=== PATIENT | male | born 1970 | race American Indian/Alaskan Native ===

== ENCOUNTER 2019-01-25 08:35 | Emergency (ER) | payer OTHER ==
[2019-01-25 11:44] LABS: Basophils # (Auto) 0.1 K/mm3 (0.0-0.1); Basophils % (Auto) 1.6 % (0.0-1.8); Eosinophils # (Auto) 0.2 K/mm3 (0.0-0.4); Eosinophils % (Auto) 2.6 % (0.0-4.3); Hematocrit 27.7 % (35.5-45.6); Hemoglobin 8.6 gm/dl (11.8-15.2); Lymphocytes # (Auto) 1.6 K/mm3 (1.2-5.4); Lymphocytes % (Auto) 22.7 % (13.4-35.0); Mean Corpuscular HGB Conc 31 % (32-34); Mean Corpuscular Volume 91 fl (84-94); Monocytes # (Auto) 0.6 K/mm3 (0.0-0.8); Monocytes % (Auto) 8.9 % (0.0-7.3); Red Blood Count 3.05 M/mm3 (3.65-5.03); Red Cell Distribution Width 14.3 % (13.2-15.2)
--- NOTE | 2019-01-25 11:45 | Emergency Department Report ---
ED General Adult HPI - General Chief complaint: Tube Replacement Stated complaint: DIALYSIS PORT IS OUT Time Seen by Provider: 01/25/19 11:28 Source: patient Mode of arrival: Wheelchair Limitations: No Limitations - History of Present Illness Initial comments: Mr. Nuñez is a very pleasant 46-year-old male with history of end-stage renal disease on hemodialysis Monday and Monday. He also has a history of hypertension. He is new to dialysis therapy. He began dialysis 2 months ago. His corrections caseworker is Dr. Nancy Su. He obtains dialysis at the clinic of Dr. Su in [place]. Today he presents with dislodgment of right sided c hest Vas-Cath. No trauma to the area. He stated that the dialysis access catheter just fell out. He currently denies chest pain, shortness of breath or bleeding. Mr. Nuñez has been referred to a vascular surgeon. He has an appointment scheduled next week. He is unable to recall the name of this clinic. He lives with his girlfriend Gina who is at the bedside. 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 The vascular device was placed at a [facility]. -: Sudden, This morning Location: chest (right-sided chest Vas-Cath dislodged) Severity scale (0 -10): 0 Improves with: none Worsens with: none Associated Symptoms: denies other symptoms Treatments Prior to Arrival: none - Related Data Allergies Allergy/AdvReac Type Severity Reaction Status Date / Time No Known Allergies Allergy Unverified 01/25/19 09:04 ED Review of Systems ROS: Stated complaint: DIALYSIS PORT IS OUT Other details as noted in HPI Comment: All other systems reviewed and negative Constitutional: denies: fever, malaise Respiratory: denies: shortness of breath Cardiovascular: denies: chest pain Gastrointestinal: denies: nausea, vomiting Hematological/Lymphatic: denies: easy bleeding, easy bruising ED Past Medical Hx - Past Medical History Previous Medical History?: Yes Hx Hypertension: Yes Hx Renal Disease: Yes (HD TTS) Additional medical history: 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 - Surgical History Past Surgical History?: Yes Additional Surgical History: intracranial surgery for ruptured aneurysm - Family History Family history: hypertension - Social History Smoking Status: Never Smoker Substance Use Type: Alcohol ED Physical Exam - General Limitations: No Limitations General appearance: alert, in no apparent distress, other (pleasant, jovial in no acute distress) - Head Head exam: Present: atraumatic, normocephalic, other (left posterior scalp old vertical linear surgical wound) - Eye Eye exam: Present: normal appearance - ENT ENT exam: Present: mucous membranes moist - Neck Neck exam: Present: normal inspection, full ROM - Respiratory Respiratory exam: Present: normal lung sounds bilaterally. Absent: respiratory distress, wheezes, rales, rhonchi - Cardiovascular Cardiovascular Exam: Present: regular rate, normal rhythm, normal heart sounds, other (right chest: bloody bandage without active bleeding). Absent: systolic murmur, diastolic murmur, rubs, gallop - GI/Abdominal GI/Abdominal exam: Present: soft, normal bowel sounds. Absent: distended, tenderness, guarding, rebound - Rectal Rectal exam: Present: deferred - Extremities Exam Extremities exam: Present: normal inspection - Back Exam Back exam: Present: normal inspection - Neurological Exam Neurological exam: Present: alert, oriented X3 - Psychiatric Psychiatric exam: Present: normal affect, normal mood - Skin Skin exam: Present: warm, dry, intact, normal color. Absent: rash ED Course Vital Signs 01/25/19 01/25/19 01/25/19 09:00 11:44 12:33 Temperature 98.9 F 98.8 F 98.4 F Pulse Rate 87 72 94 H Respiratory 16 20 16 Rate Blood Pressure 125/80 Blood Pressure 119/82 150/106 [Left] O2 Sat by Pulse 100 97 90 Oximetry ED Medical Decision Making - Lab Data Result diagrams: 01/25/19 11:32 01/25/19 11:32 - Radiology Data Radiology results: report reviewed No acute process on chest radiograph with mild cardiomegaly, no acute process, no pneumothorax no retained fragments - Medical Decision Making Mr. Nuñez has had a right-sided chest Vas-Cath in place for the past 2 months. The vascular device was inserted at [facility]. He currently does not have any complications such as pneumothorax or at the bleeding. I have reviewed the labs: CBC revealed anemia which is known to patient, potassium within normal limits. A portable chest one view borderline cardiomegaly lungs clear no acute process no obvious retained fragments or pneumothorax I have discussed case with his personal corrections caseworker Dr. Nancy Su [phone]. Dr. Su recommended having hemodialysis access placed here at our institution. I have consulted Dr. Zelaya interventionalist. Dr. Zelaya came to the bedside and evaluated Mr. Nuñez [id number]. Mr. Nuñez was taken to [facility] house lab[facility] for permacath placement. Upon return to the emergency department, he did not have any concerns or complaints. Vital signs are stable. Discharged home in stable condition. Critical care attestation.: If time is entered above; I have spent that time in minutes in the direct care of this critically ill patient, excluding procedure time. ED Disposition Clinical Impression: Dialysis catheter clot or failure, S/P dialysis catheter insertion Disposition: DC-01 TO HOME OR SELFCARE Is pt being admited?: No Does the pt Need Aspirin: No Condition: Stable Additional Instructions: Please follow up at your dialysis center tomorrow. Referrals: NANCY SU MD [Primary Care Provider] - 3-5 Days
--- NOTE | 2019-01-25 11:49 | XRay Report ---
CHEST 1 VIEW INDICATION: Vascular catheter dislodged. COMPARISON: None FINDINGS: Support devices: No Vas-Cath as visualized. No obvious retained fragments. Heart: Borderline to mild cardiomegaly. Lungs/Pleura: No acute air space or interstitial disease. Additional findings: None. IMPRESSION: Borderline to mild cardiomegaly. Lungs clear. No acute process. Signer Name: Avila Crawford Jr, MD Signed: 01/25/2019 11:44 AM Workstation Name: [id number]
[2019-01-25 11:59] LABS: Calcium 9.4 mg/dL (8.4-10.2)
[2019-01-25 12:42] LABS: Platelet Count 89 K/mm3 (140-440)
[2019-01-25 13:18] LABS: INR 1.08 (0.87-1.13)
[2019-01-25 13:20] LABS: Partial Thromboplastin Time 27.1 Sec. (24.2-36.6)
[2019-01-25] MEDS ORDERED: HEPARIN/NS 5000 UNIT/500ML(CATH LAB) 1,000 ML IR ONE (14:43)
[2019-01-25] MEDS ORDERED: XYLOCAINE 1%/ EPI 1:100,000 INFILTRATI ONE (14:44)
[2019-01-25] MEDS ORDERED: SUBLIMAZE ONE (15:02)
[2019-01-25] MEDS ORDERED: NACL 0.9% 250ML 250 ML ONE (15:02)
[2019-01-25] MEDS ORDERED: VERSED ONE (15:02)
[2019-01-25] MEDS: HEPARIN 10,000 UNITS/10 ML ONE ×4 (15:16→15:20)
--- NOTE | 2019-01-25 15:28 | Operative Report ---
Operative Report Operative Report: Exam: Ultrasound and fluoroscopic guided permcath placement Clinical indication: Patient with end-stage renal disease requiring dialysis access Date:01/25/2019 Procedure: Following an explanation of the risks, benefits and alternatives; written informed consent was obtained. The patient was brought to the angiographic suite and placed in supine position on the examination table. Initial evaluation of his neck to demonstrate a patent right internal regular vein. The patient's right neck and chest wall were prepped and draped in the usual sterile fashion. 1% lidocaine was used for anesthesia. Under ultrasound guidance, the right internal jugular vein was cannulated with a 7 cm 18-gauge needle. A 0.035 guidewire was advanced centrally under fluoroscopy to the IVC to document intravenous positioning and for anchoring. The needle was removed. An appropriate catheter exit site was chosen along the lateral right chest wall. 1% lidocaine was used for anesthesia at the catheter exit site and along the tunnel tract. A Bard Glidepath 23 cm tunneled hemodialysis catheter was then tunneled ant egrade from the catheter exit site of the venotomy site. Following serial dilation over the guidewire under fluoroscopy, a 16 Syriac peel-away sheath was placed over the guidewire under fluoroscopy and advanced centrally. The guidewire and trocar were removed and the catheter placeed. The peelaway sheath was removed. The catheter tip was positioned in the proximal right atrium. Both ports flushed and aspirated easily and were then locked with appropriate volumes of heparin. The venotomy was closed using 4-0 Vicryl suture and Dermabond. 4-0 Vicryl suture and Dermabond will also used to approximate the catheter exit site. Sterile dressings were applied. The patient tolerated the procedure well. There were no immediate post procedure complications. Conscious sedation was performed of the guidance of radiologic nursing. Continuous cardiopulmonary monitoring was utilized. Impression: Ultrasound and fluoroscopic guided PermCath placement via the right internal jugular vein.
[2019-01-25 18:10] VITALS: BP 136/83
== END 2019-01-25 16:50 | disposition home or self-care (01) ==
LOC: ED 08:35
DX: T82.9XXA Unspecified complication of cardiac and vascular prosthetic device, implant and graft, initial encounter (principal); I10 Essential (primary) hypertension
CPT/HCPCS: 36415; 71045; 80048; 85025; 85610; 85730; J1644; J2250; J3010; J7050; 36558; 77001; C1750